=== PATIENT | female | born 2005 | race Two or more races ===

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

== ENCOUNTER 2025-06-22 17:59 | Outpatient (CLI) | payer SELFPAY, OTHER ==
[~2025-06-22] VITALS: Ht 157.5 cm; Wt 47.8 kg
[~2025-06-22 17:59] MED LIST: LORA-930 PO
[2025-06-22] MEDS ORDERED: HOME MED LIST COMPLETE! XX SCH (18:10)
[2025-06-22 18:25] VITALS: BP 116/68
[2025-06-22 19:15] LABS: APPEARANCE, URINE CLEAR (CLEAR); BACTERIA, URINE AUTO NEGATIVE (NEGATIVE); BILIRUBIN, URINE AUTO NEGATIVE (NEGATIVE); BLOOD, URINE BLOOD 2+ (NEGATIVE); GLUCOSE, URINE (UA) AUTO NEGATIVE (NEGATIVE); KETONE, URINE AUTO NEGATIVE (NEGATIVE); LEUKOCYTE ESTERASE, URINE AUTO NEGATIVE (NEGATIVE); MUCUS, URINE SMALL (NEGATIVE); NITRITE, URINE AUTO NEGATIVE (NEGATIVE); PROTEIN, URINE AUTO 1+ mg/dL (NEGATIVE); RBC, URINE AUTO 1 /HPF (0-3); SPECIFIC GRAVITY URINE AUTO 1.026 (1.002-1.035); SQUAMOUS EPITHELIAL CELL UR AU 1 /HPF (0-6); UROBILINOGEN, URINE AUTO 2.0 mg/dL (0.0-2.0); WBC, URINE AUTO 2 /HPF (0-3)
== END 2025-06-22 19:00 | disposition home or self-care (01) ==
LOC: M LDO 17:59
PROVIDERS: ATTEND Obstetrics & Gynecology
DX: O26.852 Spotting complicating pregnancy, second trimester (principal); Z3A.20 20 weeks gestation of pregnancy
CPT/HCPCS: 81001; G0463